=== PATIENT | male | born 1990 | race Caucasian/White ===

== ENCOUNTER → 2018-02-06 04:50 | Emergency (ER) | payer OTHER | DX: R07.89 Other chest pain (principal); F10.10 Alcohol abuse, uncomplicated; R40.2142 Coma scale, eyes open, spontaneous, at arrival to emergency department; R40.2362 Coma scale, best motor response, obeys commands, at arrival to emergency department; R40.2252 Coma scale, best verbal response, oriented, at arrival to emergency department | CPT/HCPCS: 71045; 99283-25 ==